=== PATIENT | male | born 1970 | race Caucasian/White ===

== ENCOUNTER 2016-04-26 12:51 | Day surgery (SDC) | payer OTHER ==
[~2016-04-26] VITALS: Ht 170.2 cm; Wt 101.8 kg
[~2016-04-26 12:51] MED LIST: ADVIL,NUPRIN,M200 MG PO; ASPIRIN EC325 MG PO; ATORVASTATIN CA20 MG PO; BACTRIM,SEPT1 TABLET PO; BASAGLAR K100 UNIT/1 SC; DIOVAN160 MG PO; EFFIENT10 MG PO; FARXIGA5 MG PO; FLAGYL500 MG PO; JANUVIA100 MG PO; KENALOG,ARISTOC15 G2 TP; LO-DOSE ASPIRIN81 M1 PO; METFORMIN HCL500 MG PO; NAFCILLIN SODIUM2 GM IV; NITROSTAT0.4 MG SL; NOHOMEMEDS; NOVOLOG PE100 UNITS/ SC; PERCOCET 5/31 TABLET PO; TOPROL XL25 MG PO; TOUJEO SOL300 UNIT/1 SC; VALSARTAN80 MG PO; ZOFRAN ODT8 MG PO
[2016-04-26 13:32] VITALS: BP 129/81
[2016-04-26 13:34] LABS: POINT-OF-CARE METER ID UU14174212
[2016-04-26 14:47] LABS: POINT-OF-CARE METER ID UU14174212
[2016-04-26 17:26] LABS: POINT-OF-CARE METER ID UU13113675
[2016-04-26 17:55] VITALS: BP 147/79
[2016-04-26 19:00] VITALS: BP 150/84
== END 2016-04-26 19:22 | disposition home or self-care (01) ==
LOC: SDC 12:51
PROVIDERS: Ophthalmology
PROC: 08B53ZZ Excision of Left Vitreous, Percutaneous Approach (ICD-10-PCS; principal; 2016-04-26)
DX: H43.12 Vitreous hemorrhage, left eye (principal); I10 Essential (primary) hypertension; E11.9 Type 2 diabetes mellitus without complications; E78.5 Hyperlipidemia, unspecified; I25.10 Atherosclerotic heart disease of native coronary artery without angina pectoris; Z95.5 Presence of coronary angioplasty implant and graft
CPT/HCPCS: 82948; J0690; J2405; J3300

== ENCOUNTER 2017-08-21 18:47 | Inpatient (IN) | payer OTHER ==
[~2017-08-21] VITALS: Ht 170.2 cm; Wt 89.8 kg
[2017-08-21 20:16] LABS: HEMATOCRIT 44.4 % (38.0-50.0); HEMOGLOBIN 14.8 G/DL (12.5-16.6); MCH 27.7 PG (29.0-34.0); MCHC 33.3 G/DL (30.0-36.0); PLATELET COUNT 266 K/uL (156-360); RBC DIS.WIDTH-CV 12.9 % (11.8-14.6); RBC DIS.WIDTH-SD 38.7 % (39-53); RED BLOOD COUNT 5.35 M/uL (4.00-5.50); WHITE BLOOD COUNT 25.6 K/uL (4.1-10.2)
[2017-08-21 20:21] LABS: CARBON DIOXIDE (BICARBONATE) 35.8 MEQ/L (20-31)
[2017-08-21 20:36] LABS: CHLORIDE 90 mEq/L (99-109); SODIUM 134 mEq/L (136-147)
[2017-08-21 20:41] LABS: CREATININE 1.2 mg/dL (0.6-1.3); GFR ESTIMATE (CALCULATED) > 59 mL/min/ (58.99-99999)
[2017-08-21 20:42] LABS: UREA NITROGEN (BUN) 21 mg/dL (9-23)
[2017-08-21 20:45] LABS: GLUCOSE 551 mg/dL (70-99)
[2017-08-21 21:07] LABS: ABS NEUTROPHIL COUNT 22.7; ATYPICAL LYMPHOCYTE 1.3 %; BAND NEUTROPHILS 12.1 % (0-8.0); BASOPHILS 0.5 %; EOSINOPHIL ABS CT 0; LYMPHOCYTES 6.5 % (15.0-45.0); PLAT.SUFFICIENCY ADEQUATE; SEG.NEUTROPHILS 76.6 % (46.0-76.0)
[2017-08-21] MEDS ORDERED: EFFIENT10 MG PO (22:05)
[2017-08-21] MEDS ORDERED: ADULT ASPIRIN R81 MG PO (22:06)
[2017-08-22] VITALS (8 sets, daily range): BP systolic 137–161; BP diastolic 75–90
[2017-08-22 00:54] LABS: CHLORIDE 99 mEq/L (99-109); POTASSIUM 3.8 mEq/L (3.7-5.4); SODIUM 136 mEq/L (136-147)
[2017-08-22 00:59] LABS: CREATININE 0.8 mg/dL (0.6-1.3); GFR ESTIMATE (CALCULATED) > 59 mL/min/ (58.99-99999)
[2017-08-22 01:00] LABS: UREA NITROGEN (BUN) 19 mg/dL (9-23)
[2017-08-22 01:05] LABS: GLUCOSE 272 mg/dL (70-99)
[2017-08-22 04:31] LABS: APPEARANCE CLEAR ((CLEAR)); BILIRUBIN NEGATIVE; BLOOD SMALL; COLOR YELLOW ((YELLOW)); GLUCOSE (STRIP) >=500; KETONES 80; LEUKOCYTES NEGATIVE; NITRITE NEGATIVE; PROTEIN (STRIP) 30
[2017-08-22 04:41] LABS: SPECIFIC GRAVITY > 1.060 (1.000-1.030)
[2017-08-22 05:49] LABS: BACTERIA NONE SEEN /HPF; EPITHELIAL CELLS RARE /HPF; MUCUS NONE SEEN /LPF; RED BLOOD CELLS 0-5 /HPF (0-5); WHITE BLOOD CELLS 0-5 /HPF (0-5)
[2017-08-22 10:38] LABS: CHLORIDE 100 MEQ/L (99-109); CREATININE 0.8 MG/DL (0.6-1.3); GFR ESTIMATE (CALCULATED) > 59 mL/min/ (58.99-99999); GLUCOSE 229 mg/dL (70-99); POTASSIUM 3.6 MEQ/L (3.7-5.4); SODIUM 138 MEQ/L (136-147); UREA NITROGEN (BUN) 19 mg/dL (9-23)
[2017-08-22 11:26] LABS: BASOPHIL (%) 0.3 % (0-1); BASOPHIL COUNT 0.1 K/uL (0-0.1); EOSINOPHIL (%) 0.1 % (0-5); IMMATURE GRANULOCYTE (%) 2.8 % (0.0-0.7); LYMPHOCYTE (%) 7.7 % (15-42); MCH 27.4 PG (29.0-34.0); MCHC 32.1 G/DL (30.0-36.0); MCV 85.2 FL (86-99); MONOCYTE (%) 7.3 % (3-12); MONOCYTE COUNT 1.9 K/uL (0-0.8); NEUTROPHIL (%) 81.8 % (45-76); NEUTROPHIL COUNT 21.1 K/uL (1.8-6.4); PLATELET COUNT 222 K/uL (156-360); RBC DIS.WIDTH-CV 13.1 % (11.8-14.6); RBC DIS.WIDTH-SD 40.6 % (39-53); RED BLOOD COUNT 4.46 M/uL (4.00-5.50); WHITE BLOOD COUNT 25.8 K/uL (4.1-10.2)
[2017-08-22 11:32] LABS: HEMOGLOBIN 12.2 G/DL (12.5-16.6)
[2017-08-23 06:13] LABS: BASOPHIL (%) 0.5 % (0-1); BASOPHIL COUNT 0.1 K/uL (0-0.1); EOSINOPHIL (%) 0.7 % (0-5); EOSINOPHIL COUNT 0.1 K/uL (0-0.3); HEMATOCRIT 38.6 % (38.0-50.0); HEMOGLOBIN 12.4 G/DL (12.5-16.6); IMMATURE GRANULOCYTE (%) 4.3 % (0.0-0.7); LYMPHOCYTE (%) 11.6 % (15-42); LYMPHOCYTE COUNT 2.5 K/uL (1.0-2.8); MCH 26.9 PG (29.0-34.0); MCHC 32.1 G/DL (30.0-36.0); MCV 83.7 FL (86-99); MONOCYTE (%) 6.3 % (3-12); MONOCYTE COUNT 1.3 K/uL (0-0.8); NEUTROPHIL (%) 76.6 % (45-76); NEUTROPHIL COUNT 16.3 K/uL (1.8-6.4); PLATELET COUNT 230 K/uL (156-360); RBC DIS.WIDTH-CV 12.9 % (11.8-14.6); RBC DIS.WIDTH-SD 39.6 % (39-53); RED BLOOD COUNT 4.61 M/uL (4.00-5.50); WHITE BLOOD COUNT 21.3 K/uL (4.1-10.2)
[2017-08-23 06:42] LABS: CHLORIDE 100 MEQ/L (99-109); CREATININE 0.7 MG/DL (0.6-1.3); GFR ESTIMATE (CALCULATED) > 59 mL/min/ (58.99-99999); SODIUM 136 MEQ/L (136-147); UREA NITROGEN (BUN) 18 mg/dL (9-23)
[2017-08-23 06:44] LABS: GLUCOSE 68 mg/dL (70-99); POTASSIUM 2.8 MEQ/L (3.7-5.4)
[2017-08-23 07:00] VITALS: BP 135/75
[2017-08-23 10:50] VITALS: BP 128/74
[2017-08-23 14:53] LABS: MAGNESIUM 2.1 mg/dl (1.3-2.7); POTASSIUM 3.2 MEQ/L (3.7-5.4)
[2017-08-23 15:00] VITALS: BP 145/88
[2017-08-23 23:16] VITALS: BP 152/87
[2017-08-24 06:40] LABS: HEMATOCRIT 35.4 % (38.0-50.0); HEMOGLOBIN 11.3 G/DL (12.5-16.6); MCHC 31.9 G/DL (30.0-36.0); MCV 84.5 FL (86-99); PLATELET COUNT 216 K/uL (156-360); RBC DIS.WIDTH-CV 13.2 % (11.8-14.6); RBC DIS.WIDTH-SD 40.9 % (39-53); RED BLOOD COUNT 4.19 M/uL (4.00-5.50)
[2017-08-24 07:03] LABS: CHLORIDE 105 MEQ/L (99-109); CREATININE 0.7 MG/DL (0.6-1.3); GFR ESTIMATE (CALCULATED) > 59 mL/min/ (58.99-99999); GLUCOSE 65 mg/dL (70-99); POTASSIUM 3.1 MEQ/L (3.7-5.4); SODIUM 140 MEQ/L (136-147); UREA NITROGEN (BUN) 17 mg/dL (9-23)
[2017-08-24 07:28] VITALS: BP 132/73
[2017-08-24 12:42] LABS: HEMOGLOBIN A1c (GLYCOHEMOGLOB) 10.9 % (Below 5.7)
[2017-08-24 16:21] VITALS: BP 139/85
[2017-08-24 23:30] VITALS: BP 98/57
[2017-08-25 06:33] LABS: HEMATOCRIT 41.8 % (38.0-50.0); MCHC 31.1 G/DL (30.0-36.0); MCV 86.7 FL (86-99); PLATELET COUNT 208 K/uL (156-360); RBC DIS.WIDTH-CV 13.3 % (11.8-14.6); RBC DIS.WIDTH-SD 42.4 % (39-53); RED BLOOD COUNT 4.82 M/uL (4.00-5.50); WHITE BLOOD COUNT 14.9 K/uL (4.1-10.2)
[2017-08-25 06:59] LABS: CHLORIDE 104 MEQ/L (99-109); CREATININE 0.7 MG/DL (0.6-1.3); GFR ESTIMATE (CALCULATED) > 59 mL/min/ (58.99-99999); SODIUM 137 MEQ/L (136-147); UREA NITROGEN (BUN) 13 mg/dL (9-23)
[2017-08-25 07:11] LABS: GLUCOSE 220 mg/dL (70-99); POTASSIUM 4.1 MEQ/L (3.7-5.4)
[2017-08-25 07:45] VITALS: BP 173/95
[2017-08-25 16:24] VITALS: BP 129/66
[2017-08-25 23:17] VITALS: BP 120/72
[2017-08-26 06:13] LABS: HEMATOCRIT 32.7 % (38.0-50.0); MCH 26.8 PG (29.0-34.0); MCHC 31.5 G/DL (30.0-36.0); MCV 84.9 FL (86-99); PLATELET COUNT 213 K/uL (156-360); RBC DIS.WIDTH-CV 13.2 % (11.8-14.6); RBC DIS.WIDTH-SD 41.7 % (39-53); WHITE BLOOD COUNT 13.6 K/uL (4.1-10.2)
[2017-08-26 06:22] LABS: HEMOGLOBIN 10.3 G/DL (12.5-16.6); RED BLOOD COUNT 3.85 M/uL (4.00-5.50)
[2017-08-26 07:15] VITALS: BP 121/70
[2017-08-26 16:21] VITALS: BP 137/97
[2017-08-26 23:32] VITALS: BP 137/77
[2017-08-27 06:33] LABS: HEMOGLOBIN 10.9 G/DL (12.5-16.6); MCH 26.7 PG (29.0-34.0); MCHC 31.1 G/DL (30.0-36.0); MCV 85.6 FL (86-99); PLATELET COUNT 255 K/uL (156-360); RBC DIS.WIDTH-CV 13.3 % (11.8-14.6); RED BLOOD COUNT 4.09 M/uL (4.00-5.50); WHITE BLOOD COUNT 12.6 K/uL (4.1-10.2)
[2017-08-27 07:00] VITALS: BP 158/80
[2017-08-27 15:35] VITALS: BP 167/97
[2017-08-27 23:43] VITALS: BP 163/83
[2017-08-28 04:30] VITALS: BP 152/82
[2017-08-28 06:29] LABS: HEMATOCRIT 32.8 % (38.0-50.0); HEMOGLOBIN 10.2 G/DL (12.5-16.6); MCH 26.4 PG (29.0-34.0); MCHC 31.1 G/DL (30.0-36.0); MCV 84.8 FL (86-99); PLATELET COUNT 263 K/uL (156-360); RBC DIS.WIDTH-CV 13.4 % (11.8-14.6); RED BLOOD COUNT 3.87 M/uL (4.00-5.50); WHITE BLOOD COUNT 11.3 K/uL (4.1-10.2)
[2017-08-28 06:55] VITALS: BP 141/70
[2017-08-28 06:57] LABS: CHLORIDE 102 MEQ/L (99-109); CREATININE 0.9 MG/DL (0.6-1.3); GFR ESTIMATE (CALCULATED) > 59 mL/min/ (58.99-99999); GLUCOSE 227 mg/dL (70-99); POTASSIUM 3.8 MEQ/L (3.7-5.4); SODIUM 139 MEQ/L (136-147); UREA NITROGEN (BUN) 8 mg/dL (9-23)
[2017-08-28 15:05] VITALS: BP 124/77
[2017-08-29 00:30] VITALS: BP 136/81
[2017-08-29 04:31] VITALS: BP 125/75
[2017-08-29 06:49] LABS: HEMATOCRIT 34.2 % (38.0-50.0); HEMOGLOBIN 10.7 G/DL (12.5-16.6); MCH 26.8 PG (29.0-34.0); MCHC 31.3 G/DL (30.0-36.0); MCV 85.5 FL (86-99); PLATELET COUNT 301 K/uL (156-360); RBC DIS.WIDTH-CV 13.4 % (11.8-14.6); RBC DIS.WIDTH-SD 41.8 % (39-53); WHITE BLOOD COUNT 13.2 K/uL (4.1-10.2)
[2017-08-29 07:17] VITALS: BP 156/89
[2017-08-29 07:20] LABS: CHLORIDE 100 MEQ/L (99-109); CREATININE 0.8 MG/DL (0.6-1.3); GFR ESTIMATE (CALCULATED) > 59 mL/min/ (58.99-99999); GLUCOSE 245 mg/dL (70-99); POTASSIUM 4.4 MEQ/L (3.7-5.4); SODIUM 135 MEQ/L (136-147); UREA NITROGEN (BUN) 9 mg/dL (9-23)
[2017-08-29 07:21] LABS: ABS NEUTROPHIL COUNT 10.2; ATYPICAL LYMPHOCYTE 1.7 %; BAND NEUTROPHILS 1.7 % (0-8.0); EOSINOPHIL ABS CT 0.3; EOSINOPHILS 2.6 % (0-5.0); LYMPHOCYTES 13.2 % (15.0-45.0); MONOCYTES 4.4 % (0-9.0); MYELOCYTES 0.9 %; PLAT.SUFFICIENCY ADEQUATE; SEG.NEUTROPHILS 75.5 % (46.0-76.0); SMUDGE CELLS 6.1
[2017-08-29 16:11] VITALS: BP 126/79
[2017-08-29 23:21] VITALS: BP 159/85
[2017-08-30 06:50] VITALS: BP 171/88
[2017-08-30 09:04] LABS: HEMATOCRIT 34.5 % (38.0-50.0); HEMOGLOBIN 10.8 G/DL (12.5-16.6); MCH 26.9 PG (29.0-34.0); MCHC 31.3 G/DL (30.0-36.0); MCV 85.8 FL (86-99); PLATELET COUNT 340 K/uL (156-360); RBC DIS.WIDTH-CV 13.5 % (11.8-14.6); RBC DIS.WIDTH-SD 42.4 % (39-53); RED BLOOD COUNT 4.02 M/uL (4.00-5.50); WHITE BLOOD COUNT 11.4 K/uL (4.1-10.2)
[2017-08-30] MEDS ORDERED: TRAMADOL HCL50 MG PO (12:23)
[2017-08-30] MEDS ORDERED: CEFTRIAXONE2 G1 IV (12:23)
[2017-08-30] MEDS ORDERED: KEFLEX500 MG PO (12:36)
== END 2017-08-30 15:35 | disposition home or self-care (01) | DRG 872 ==
LOC: EME 18:47 → ENRESERV 08-22 → EDOF 08-22 00:29 → 5EAST 08-22 00:29 → ENRESERV 08-22 00:32 → 4EAST 08-22 02:00 → ENRESERV 08-22 17:55 → 5EAST 08-22 19:38 → ENPENDDIS 08-30 → 5EAST 08-30 15:35
PROVIDERS: Internal Medicine; Physician Assistant; Physician Assistant Medical; Physician Assistant Surgical
DX: A41.01 Sepsis due to Methicillin susceptible Staphylococcus aureus (principal); A40.1 Sepsis due to streptococcus, group B; E11.9 Type 2 diabetes mellitus without complications; E11.65 Type 2 diabetes mellitus with hyperglycemia; I25.10 Atherosclerotic heart disease of native coronary artery without angina pectoris; E78.5 Hyperlipidemia, unspecified; L03.811 Cellulitis of head [any part, except face]; I10 Essential (primary) hypertension; E87.6 Hypokalemia; K59.00 Constipation, unspecified; Z79.4 Long term (current) use of insulin; Z91.14 Patient's other noncompliance with medication regimen; Z88.0 Allergy status to penicillin; Z87.891 Personal history of nicotine dependence; M60.9 Myositis, unspecified
CPT/HCPCS: 70470; 70491; 80048; 80048 91; 80202; 81003; 82010; 82803; 82948; 83036; 83605; 83735; 84132 91; 85025; 85027; 87040; 87070; 87075; 87077; 87147; 87186; 87205; 87641; 99281; 99285; A6260; J0360; J0690; J0696; J1170; J1644; J1815; J1956; J2250; J2405; J2543; J3010; J3370; J3480; J7030; J7050; S0028